=== PATIENT | male | born 1990 | race African-American/Black ===

== ENCOUNTER 2021-01-21 23:29 | Emergency (ER) | payer SELFPAY ==
[~2021-01-21] VITALS: Ht 188 cm; Wt 78.0 kg
[2021-01-22] MEDS ORDERED: IBUPROFEN 600MG TABLET PO ONE
[2021-01-22] MEDS ORDERED: IBUP-2029 MT (00:35)
[2021-01-22 00:45] VITALS: BP 111/64
== END 2021-01-22 00:45 | disposition home or self-care (01) ==
LOC: ER 23:29
DX: M25.512 Pain in left shoulder (principal); M79.18 Myalgia, other site; Z98.890 Other specified postprocedural states
CPT/HCPCS: 73000; 99283